=== PATIENT | female | born 1955 | race Caucasian/White ===

== ENCOUNTER 2016-05-26 14:14 | Outpatient (CLI) | END 2016-05-26 14:15 | disposition home or self-care (01) | LOC: LAB 14:14 | PROVIDERS: ATTEND Internal Medicine | DX: J02.9 Acute pharyngitis, unspecified (principal) | CPT/HCPCS: 87651; 87880 ==

== ENCOUNTER 2016-09-11 15:53 | Outpatient (CLI) | payer OTHER ==
[2016-09-11 16:36] LABS: BASOPHILS # (AUTO) 0.1 K/uL (0-0.2); BASOPHILS % (AUTO) 0.9 % (0.0-3.0); EOSINOPHILS # (AUTO) 0.2 K/ul (0.0-0.7); EOSINOPHILS % (AUTO) 2.2 % (0.0-7.0); HEMOGLOBIN 13.6 g/dl (12.0-16.0); IMMATURE GRANULOCYTE % (AUTO) 0.3 % (0.0-5.0); LYMPHOCYTES # (AUTO) 2.1 K/uL (0.60-3.4); LYMPHOCYTES % (AUTO) 31.5 (10.0-50.0); MEAN CORPUSCULAR HEMOGLOBIN 29.3 pg (27.0-31.0); MEAN CORPUSCULAR HGB CONC 33.2 (31.8-35.4); MEAN CORPUSCULAR VOLUME 88.4 fl (81.0-99.0); MONOCYTES # (AUTO) 0.5 K/uL (0.4-2.0); MONOCYTES % (AUTO) 7.1 (0-10); NEUTROPHILS # (AUTO) 3.9 K/ul (2.0-6.9); PLATELET COUNT 303 10^3/uL (140-440); RED BLOOD COUNT 4.64 10^6/ul (4.20-5.40); WHITE BLOOD COUNT 6.76 K/ul (4.6-10.2)
[2016-09-11 16:40] LABS: BILIRUBIN,URINE Negative (NEGATIVE); KETONES,URINE Negative (NEGATIVE); LEUKOCYTE ESTERASE ,URINE Negative (NEGATIVE); NITRITE,URINE Negative (NEGATIVE); PH,URINE 5.5 (5-9); PROTEIN,URINE Negative (NEGATIVE); URINE, BLOOD Negative (NEGATIVE)
[2016-09-11 16:41] LABS: ADD URINE MICROSCOPIC NO
[2016-09-11 17:08] LABS: ALBUMIN 3.9 g/dL (3.4-5.0); ALBUMIN/GLOBULIN RATIO 1.03; BILIRUBIN,TOTAL 0.45 mg/dL (0.00-1.20); BUN/CREATININE RATIO 12.24; CALCIUM 9.9 mg/dL (8.2-10.2); CHOL/HDL RATIO 5.1 (4.5-5.5); CREATININE 0.98 mg/dL (0.60-1.30); TOTAL PROTEIN 7.7 g/dL (5.8-8.1)
== END 2016-09-11 15:54 | disposition home or self-care (01) ==
LOC: LAB 15:53
PROVIDERS: ATTEND General Practice
DX: E11.9 Type 2 diabetes mellitus without complications (principal); I10 Essential (primary) hypertension; J30.2 Other seasonal allergic rhinitis; Z79.899 Other long term (current) drug therapy
CPT/HCPCS: 36415; 80053; 80061; 81001; 83036; 84443; 85025

== ENCOUNTER 2016-10-23 14:07 | Outpatient (CLI) ==
[2016-10-23 16:30] LABS: ALBUMIN 3.7 g/dL (3.4-5.0); ANION GAP 12.3; BUN/CREATININE RATIO 12.64; CALCIUM 9.7 mg/dL (8.2-10.2); CREATININE 0.87 mg/dL (0.60-1.30); PHOSPHORUS 3.1 mg/dL (2.8-4.1); POTASSIUM 4.3 mmol/L (3.5-5.10)
== END 2016-10-23 14:08 | disposition home or self-care (01) ==
LOC: LAB 14:07
PROVIDERS: ATTEND General Practice
DX: E11.9 Type 2 diabetes mellitus without complications (principal); I10 Essential (primary) hypertension
CPT/HCPCS: 36415; 80069; 83036

== ENCOUNTER 2018-08-18 10:02 | Outpatient (CLI) | END 2018-08-18 10:03 | disposition home or self-care (01) | LOC: LAB 10:02 | PROVIDERS: ATTEND General Practice | DX: Z00.00 Encounter for general adult medical examination without abnormal findings (principal); E11.9 Type 2 diabetes mellitus without complications; I10 Essential (primary) hypertension | CPT/HCPCS: 36415; 80053; 80061; 81001; 83036; 85025 ==